=== PATIENT | male | born 1985 | race Caucasian/White ===

== ENCOUNTER 2020-03-31 14:35 | Emergency (ER) | payer OTHER ==
[~2020-03-31] VITALS: Ht 175.3 cm; Wt 72.7 kg
--- NOTE | 2020-03-31 15:49 | RAD ---
EXAM: Chest, single view. HISTORY: Chest pain. COMPARISON: None. FINDINGS: A frontal view of the chest is obtained. There is no infiltrate, pleural effusion or pneumothorax. The heart is normal in size. IMPRESSION: No acute pulmonary finding. Electronically signed by: Trish Morelos MD (03/31/2020 3:46 PM) [facility]
[2020-03-31] MEDS ORDERED: hydrOXYzine HCL 25 MG TABLET PO ONE (16:00)
[2020-03-31] MEDS ORDERED: KETOROLAC 60 MG/2 ML VIAL. IM ONE (16:00)
--- NOTE | 2020-03-31 16:06 | PHYS DOC ---
Past History Past Medical History: High Cholesterol, Hypertension Past Surgical History: Other Additional Past Surgical Histo: eye surgery Alcohol Use: None General Adult EDM: Chief Complaint: CHEST PAIN HPI: HPI: Patient is a 34-year-old male who presented to ER today for evaluation of some chest pain, started this morning. Patient denies any trouble breathing, no nausea vomiting. Patient denies any cough or fever. Patient had no history of diabetes, no history of high cholesterol. Patient denies smoking tobacco. Patient denies any recent travel operation, no cough, no fever. Patient parents has history of coronary disease at the age of 70-year. Patient said there has been a lot of stress at home. Patient went out to eat [employer] this morning, then later had some diarrhea as well. Review of Systems: Review of Systems: Constitutional: Denies fever or chills Eyes: Denies change in visual acuity HENT: Denies nasal congestion or sore throat Respiratory: Denies cough or shortness of breath Cardiovascular: Positive for chest pain, no edema GI: Denies abdominal pain, nausea, vomiting, bloody stools or diarrhea : Denies dysuria Musculoskeletal: Denies back pain or joint pain Integument: Denies rash Neurologic: Denies headache, focal weakness or sensory changes Endocrine: Denies polyuria or polydipsia Lymphatic: Denies swollen glands Psychiatric: Denies depression or anxiety Heart Score: Risk Factors: Risk Factors: DM, Current or recent (<one month) smoker, HTN, HLP, family history of CAD, obesity. Risk Scores: Score 0 - 3: 2.5% MACE over next 6 weeks - Discharge Home Score 4 - 6: 20.3% MACE over next 6 weeks - Admit for Clinical Observation Score 7 - 10: 72.7% MACE over next 6 weeks - Early Invasive Strategies Current Medications: Current Meds: Current Medications Medications (Trade) Dose Ordered Sig/Bob Start Time Stop Time Status Last Admin Dose Admin Hydroxyzine HCl (Atarax) 25 mg 1X ONCE 03/31/20 16:00 03/31/20 16:01 DC Ketorolac Tromethamine (Toradol Im) 60 mg 1X ONCE 03/31/20 16:00 03/31/20 16:01 DC Allergies: Allergies: Allergies Coded Allergies Type Severity Reaction Last Updated Verified No Known Drug Allergies 03/31/20 No Physical Exam: PE: Constitutional: Well developed, well nourished, no acute distress, non-toxic appearance. [] HENT: Normocephalic, atraumatic, bilateral external ears normal, oropharynx moist, no oral exudates, nose normal. [] Eyes: PERRLA, EOMI, conjunctiva normal, no discharge. [] Neck: Normal range of motion, no tenderness, supple, no stridor. [] Cardiovascular:Heart rate regular rhythm, no murmur [] Lungs & Thorax: Bilateral breath sounds clear to auscultation [] Abdomen: Bowel sounds normal, soft, no tenderness, no masses, no pulsatile masses. [] Skin: Warm, dry, no erythema, no rash. [] Back: No tenderness, no CVA tenderness. [] Extremities: No tenderness, no cyanosis, no clubbing, ROM intact, no edema. [] Neurologic: Alert and oriented X 3, normal motor function, normal sensory function, no focal deficits noted. [] Psychologic: Affect normal, judgement normal, mood normal. [] Current Patient Data: Vital Signs: Vital Signs Date Time Temp Pulse Resp B/P (MAP) Pulse Ox O2 Delivery O2 Flow Rate FiO2 03/31/20 15:03 98.3 89 20 173/95 (121) 95 Room Air EKG: EKG: [] EKG was done at 1449, read by this physician, heart rate of 89 bpm, normal sinus rhythm, normal axis, no ST segment elevation. Radiology/Procedures: Radiology/Procedures: [][place] [address] IMAGING REPORT Signed PATIENT: DEJAH SILVA ACCOUNT: [id number] : 1985 LOCATION: ER AGE: 34 SEX: M EXAM STATUS: REG ER ORD. PHYSICIAN: JOSE GUADALUPE DO REASON: chest pain PROCEDURE: CHEST AP ONLY EXAM: Chest, single view. HISTORY: Chest pain. COMPARISON: None. FINDINGS: A frontal view of the chest is obtained. There is no infiltrate, pleural effusion or pneumothorax. The heart is normal in size. IMPRESSION: No acute pulmonary finding. Electronically signed by: Trish Lopez MD (03/31/2020 3:46 PM) [facility] DICTATED AND SIGNED BY: TRISH LOPEZ MD DATE: 03/31/20 1546 CC: PCP,NO; JOSE GUADALUPE DO ~ Course & Med Decision Making: Course & Med Decision Making Pertinent Labs and Imaging studies reviewed. (See chart for details) Patient is a 34-year-old man who was evaluated in ER today due to chest pain, symptom has been going on since yesterday, the chest pain associate with some anxiety, stress related at home. Patient EKG is normal, chest x-ray normal as well. Patient has history hypertension, no history of diabetes, no history of recent travel operation no history of blood clot disorder. Patient'S FATHER and mom haVE history of coronary disease but they were in the 70-year of age when THEY have the problem. There is no further diagnostic work-up needed in the ED at this time. Patient will be discharged home, he will need to follow-up with his family doctor for further outpatient evaluation and treatment. Dragon Disclaimer: Dragon Disclaimer: This electronic medical record was generated, in whole or in part, using a voice recognition dictation system. Departure Departure: Impression: Primary Impression: Chest pain Additional Impression: Anxiety Disposition: HOME, SELF-CARE Condition: STABLE Referrals: PCP,ANT (PCP) FOLLOW UP WITH YOUR DOCTOR NEXT WEEK FOR REEVALUATION Patient Instructions: Anxiety and Panic Attacks, Chest Pain (Nonspecific) Additional Instructions: Thank you for visiting our Emergency Department. We appreciate you trusting us with your care. If any additional problems come up don't hesitate to return to visit us. Please follow up with your primary care provider so they can plan additional care if needed and know about the problem that you had. If symptoms worsen come back to the Emergency Department. Any concerning symptoms that start such as chest pain, shortness of air, weakness or numbness on one side of the body, running high fevers or any other concerning symptoms return to the ER. Scripts Hydroxyzine Hcl (HYDROXYZINE HCL) 25 Mg Tablet 1 TAB PO TID PRN for ANXIETY, #30 TAB Prov: JOSE GUADALUPE DO 03/31/20 JOSE GUADALUPE DO March 31, 2020 16:06
--- NOTE | 2020-03-31 16:13 | EKG ---
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
[2020-03-31 16:30] VITALS: BP 160/96
[2020-03-31] MEDS ORDERED: HYDR25TA PO (16:34)
== END 2020-03-31 16:55 | disposition home or self-care (01) ==
LOC: ER 14:35
DX: R07.9 Chest pain, unspecified (principal); F41.9 Anxiety disorder, unspecified; R19.7 Diarrhea, unspecified; E78.00 Pure hypercholesterolemia, unspecified; I10 Essential (primary) hypertension
CPT/HCPCS: 71045; 93005; 96372; 99283; J1885